=== PATIENT | male | born 1940 | race Caucasian/White ===

== ENCOUNTER 2016-06-29 11:31 | Emergency (ER) | payer MEDICARE ==
[2016-06-29] MEDS ORDERED: ADENOSINE 3 MG/ML 2 ML VIAL IVP STA (11:45)
[2016-06-29 11:51] VITALS: RESP 18
--- NOTE | 2016-06-29 11:52 | ED ---
General Adult HPI - General Chief complaint: Chest Pain Stated complaint: chest pain Time Seen by Provider: 06/29/16 11:35 Source: patient, family, RN notes reviewed Mode of arrival: wheelchair Limitations: no limitations - History of Present Illness Initial comments: This is a 76-year-old male who presents emergency department with past medical history significant for hypertension. Patient states today approximately an hour prior to arrival he started feeling his heart racing and he started having some chest pressure. Patient states he also became lightheaded. Patient states he was chopping wood at the time. Patient denies any significant difficulty breathing. Patient denies any recent fever chills cough per patient denies any similar symptoms in the past. Patient denies any heart disease in the past. Patient denies any diabetes. Patient denies any abdominal pain. Patient denies nausea vomiting diarrhea. Patient states he was sweating but he was also working hard in the was with full clothing on. Patient denies headache patient denies numbness weakness. Patient states currently lying in bed he has no chest pain and he is no longer lightheaded. - Related Data Home Medications Medication Instructions Recorded Confirmed Aspirin EC [Ecotrin Low Dose] 81 mg PO DAILY PRN 06/29/16 06/29/16 Atorvastatin [Lipitor] 20 mg PO HS 06/29/16 06/29/16 Losartan Potassium [Cozaar] 50 mg PO HS 06/29/16 06/29/16 Allergies Allergy/AdvReac Type Severity Reaction Status Date / Time No Known Allergies Allergy Verified 06/29/16 12:32 Review of Systems ROS Statement: Those systems with pertinent positive or pertinent negative responses have been documented in the HPI. ROS Other: All systems not noted in ROS Statement are negative. Past Medical History Past Medical History: Hyperlipidemia, Hypertension History of Any Multi-Drug Resistant Organisms: None Reported Additional Past Surgical History / Comment(s): ANKLE SURGERY Past Psychological History: No Psychological Hx Reported Smoking Status: Former smoker Past Alcohol Use History: None Reported Past Drug Use History: None Reported General Exam - General Exam Comments Initial Comments: GENERAL: Patient is well-developed and well-nourished. Patient is nontoxic and well- hydrated and is in mild distress. ENT: Neck is soft and supple. No significant lymphadenopathy is noted. Oropharynx is clear. Moist mucous membranes. Neck has full range of motion without eliciting any pain. EYES: The sclera were anicteric and conjunctiva were pink and moist. Extraocular movements were intact and pupils were equal round and reactive to light. Eyelids were unremarkable. PULMONARY: Unlabored respirations. Good breath sounds bilaterally. No audible rales rhonchi or wheezing was noted. CARDIOVASCULAR: Patient has a heart rate that is tachycardic at about 200 beats a minute ABDOMEN: Soft and nontender with normal bowel sounds. No palpable organomegaly was noted. There is no palpable pulsatile mass. SKIN: Skin is clear with no lesions or rashes and otherwise unremarkable. NEUROLOGIC: Patient is alert and oriented x3. Cranial nerves II through XII are grossly intact. Motor and sensory are also intact. Normal speech, volume and content. Symmetrical smile. MUSCULOSKELETAL: Normal extremities with adequate strength and full range of motion. No lower extremity swelling or edema. No calf tenderness. LYMPHATICS: No significant lymphadenopathy is noted PSYCHIATRIC: Normal psychiatric evaluation. Normal interpersonal interactions appears functionally intact in deals appropriately with others. No signs of depression. No signs of anxiety. Limitations: no limitations Course Vital Signs 06/29/16 06/29/16 06/29/16 11:35 11:51 12:37 Temperature 97.3 F L Pulse Rate 201 H 97 95 Respiratory 20 18 18 Rate Blood Pressure 117/59 145/70 153/77 O2 Sat by Pulse 95 98 100 Oximetry Medical Decision Making - Medical Decision Making Initial EKG for the patient showed a supraventricular tachycardia at 199 bpm QRS is 84 Q-T intervals 224 QTC is 407. No ST segment elevation was noted. I gave the patient 6 mg of adenosine and converted to a sinus rhythm at a second EKG it showed a sinus tachycardia at 109 bpm MD interval 164 QRS is 88 QT interval 320 QTC is 4:30. Patient's EKG shows no ST segment elevation or depression or T-wave abdomen is noted. Patient's chest x-ray showed no acute abnormality I went back into the room to reevaluate the patient he was having no symptoms since we converted him. - Lab Data Result diagrams: 06/29/16 11:44 06/29/16 11:44 Lab Results 06/29/16 06/29/16 06/29/16 Range/Units 11:44 11:44 11:44 WBC 9.5 (3.8-10.6) k/uL RBC 5.25 (4.30-5.90) m/uL Hgb 16.7 (13.0-17.5) gm/dL Hct 49.9 (39.0-53.0) % MCV 95.1 (80.0-100.0) fL MCH 31.8 (25.0-35.0) pg MCHC 33.5 (31.0-37.0) g/dL RDW 12.6 (11.5-15.5) % Plt Count 334 (150-450) k/uL Neutrophils % 67 % Lymphocytes % 21 % Monocytes % 6 % Eosinophils % 3 % Basophils % 1 % Neutrophils # 6.3 (1.3-7.7) k/uL Lymphocytes # 2.0 (1.0-4.8) k/uL Monocytes # 0.5 (0-1.0) k/uL Eosinophils # 0.3 (0-0.7) k/uL Basophils # 0.1 (0-0.2) k/uL PT (9.0-12.0) sec INR (<1.1) APTT (22.0-30.0) sec Sodium 141 (137-145) mmol/L Potassium 4.7 (3.5-5.1) mmol/L Chloride 106 (98-107) mmol/L Carbon Dioxide 20 L (22-30) mmol/L Anion Gap 15 mmol/L BUN 16 (9-20) mg/dL Creatinine 1.10 (0.66-1.25) mg/dL Est GFR (MDRD) Af Amer >60 (>60 ml/min/1.73 sqM) Est GFR (MDRD) Non-Af >60 (>60 ml/min/1.73 sqM) Glucose 173 H (74-99) mg/dL Calcium 9.7 (8.4-10.2) mg/dL Magnesium 2.1 (1.6-2.3) mg/dL Total Bilirubin 1.0 (0.2-1.3) mg/dL AST 23 (17-59) U/L ALT 33 (21-72) U/L Alkaline Phosphatase 77 (38-126) U/L Total Creatine Kinase 112 (55-170) U/L CK-MB (CK-2) 1.4 (0.0-2.4) ng/mL CK-MB (CK-2) Rel Index 1.3 Troponin I <0.012 (0.000-0.034) ng/mL Total Protein 8.0 (6.3-8.2) g/dL Albumin 4.6 (3.5-5.0) g/dL TSH 2.130 (0.465-4.680) mIU/L Free T4 1.10 (0.78-2.19) ng/dL 06/29/16 Range/Units 12:06 WBC (3.8-10.6) k/uL RBC (4.30-5.90) m/uL Hgb (13.0-17.5) gm/dL Hct (39.0-53.0) % MCV (80.0-100.0) fL MCH (25.0-35.0) pg MCHC (31.0-37.0) g/dL RDW (11.5-15.5) % Plt Count (150-450) k/uL Neutrophils % % Lymphocytes % % Monocytes % % Eosinophils % % Basophils % % Neutrophils # (1.3-7.7) k/uL Lymphocytes # (1.0-4.8) k/uL Monocytes # (0-1.0) k/uL Eosinophils # (0-0.7) k/uL Basophils # (0-0.2) k/uL PT 10.4 (9.0-12.0) sec INR 1.0 (<1.1) APTT 22.4 (22.0-30.0) sec Sodium (137-145) mmol/L Potassium (3.5-5.1) mmol/L Chloride (98-107) mmol/L Carbon Dioxide (22-30) mmol/L Anion Gap mmol/L BUN (9-20) mg/dL Creatinine (0.66-1.25) mg/dL Est GFR (MDRD) Af Amer (>60 ml/min/1.73 sqM) Est GFR (MDRD) Non-Af (>60 ml/min/1.73 sqM) Glucose (74-99) mg/dL Calcium (8.4-10.2) mg/dL Magnesium (1.6-2.3) mg/dL Total Bilirubin (0.2-1.3) mg/dL AST (17-59) U/L ALT (21-72) U/L Alkaline Phosphatase (38-126) U/L Total Creatine Kinase (55-170) U/L CK-MB (CK-2) (0.0-2.4) ng/mL CK-MB (CK-2) Rel Index Troponin I (0.000-0.034) ng/mL Total Protein (6.3-8.2) g/dL Albumin (3.5-5.0) g/dL TSH (0.465-4.680) mIU/L Free T4 (0.78-2.19) ng/dL Critical Care Time Critical Care Time: Yes Total Critical Care Time: 35 Disposition Clinical Impression: SVT (supraventricular tachycardia) Disposition: HOME SELF-CARE Condition: Good Instructions: Supraventricular Tachycardia (ED) Referrals: Masood Noel MD [Primary Care Provider] - 1-2 days Time of Disposition: 13:03
[2016-06-29 12:01] LABS: Basophils # (A) 0.1 k/uL (0-0.2); Basophils % (A) 1 %; CH 32.9; CHCM 34.8; Eosinophils # (A) 0.3 k/uL (0-0.7); Eosinophils % (A) 3 %; HCT 49.9 % (39.0-53.0); HDW 2.74; HGB 16.7 gm/dL (13.0-17.5); Luc # (Auto) 0.26; Luc % (Auto) 3; Lymphocytes % (A) 21 %; MCH 31.8 pg (25.0-35.0); MCHC 33.5 g/dL (31.0-37.0); MCV 95.1 fL (80.0-100.0); Mean Platelet Volume 6.8; Monocytes # (A) 0.5 k/uL (0-1.0); Monocytes % (A) 6 %; Neutrophils # (A) 6.3 k/uL (1.3-7.7); Neutrophils % (A) 67 %; RBC 5.25 m/uL (4.30-5.90); RDW 12.6 % (11.5-15.5); WBC 9.5 k/uL (3.8-10.6); WBC (Perox) 9.52
[2016-06-29 12:14] LABS: ALT 33 U/L (21-72); AST 23 U/L (17-59); Alkaline Phosphatase 77 U/L (38-126); Anion Gap 15 mmol/L; Blood Urea Nitrogen 16 mg/dL (9-20); Calcium 9.7 mg/dL (8.4-10.2); Carbon Dioxide 20 mmol/L (22-30); Chloride 106 mmol/L (98-107); Glucose 173 mg/dL (74-99); Magnesium 2.1 mg/dL (1.6-2.3); Non-African American GFR(MDRD) >60 (>60 ml/min/1.73 sqM); Potassium 4.7 mmol/L (3.5-5.1); Sodium 141 mmol/L (137-145)
[2016-06-29 12:20] LABS: Creatine Kinase 112 U/L (55-170)
[2016-06-29 12:21] LABS: Partial Thromboplastin Time 22.4 sec (22.0-30.0); Prothrombin Time 10.4 sec (9.0-12.0)
[2016-06-29 12:33] LABS: Creatine Kinase MB 1.4 ng/mL (0.0-2.4); Troponin I <0.012 ng/mL (0.000-0.034)
--- NOTE | 2016-06-29 12:45 | XR ---
EXAMINATION TYPE: XR chest 2V DATE OF EXAM: 06/29/2016 12:01 PM COMPARISON: NONE INDICATION: Dysrhythmia short of breath chest pain TECHNIQUE: Frontal and lateral views of the chest are obtained. FINDINGS: The heart size is normal. The pulmonary vasculature is normal. The lungs are clear. IMPRESSION: 1. No acute pulmonary process.
[2016-06-29 12:57] VITALS: BP 153/77; PULSE 95
[2016-06-29 13:14] VITALS: TEMP 97.1
== END 2016-06-29 13:14 | disposition home or self-care (01) ==
LOC: EC 11:31
DX: I47.1 Supraventricular tachycardia (principal); E78.5 Hyperlipidemia, unspecified; I10 Essential (primary) hypertension; Z87.891 Personal history of nicotine dependence; Z79.899 Other long term (current) drug therapy
CPT/HCPCS: 99285; 96374; 36415; 93005; 84439; 80053; 82550; 82553; 83735; 84443; 84484; 85025; 85610; 85730; 71020; J0153

== ENCOUNTER 2021-04-03 01:33 | Observation (INO) | payer MEDICARE ==
[2021-04-03] MEDS ORDERED: MORPHINE SULFATE 4 MG/ML SYRINGE IV STA (01:43)
[2021-04-03] MEDS ORDERED: SODIUM CHLORIDE 0.9% 1,000 ML IV STA (01:43)
[2021-04-03] MEDS ORDERED: ONDANSETRON 4 MG/2 ML VIAL IVP STA (01:43)
--- NOTE | 2021-04-03 01:44 | ED ---
Abdominal Pain HPI - General Chief Complaint: Abdominal Pain Stated Complaint: Abdominal pain Time Seen by Provider: 04/03/21 01:43 Source: patient, EMS, RN notes reviewed, old records reviewed Mode of arrival: EMS Limitations: no limitations - History of Present Illness Initial Comments: This is an 80-year-old male to the ER today for evaluation of severe epigastric and right upper quadrant abdominal pain to his back. Positive nausea positive vomiting no fevers. No recent travel history or sick contacts. No prior significant surgical history. Doesn't feel more nauseous now symptoms began shortly after eating dinner Complaint: abdominal pain -: hour(s) Location: diffuse, RUQ Radiation: RUQ, epigastric Migration to: epigastric Severity: moderate Severity scale (1-10): 7 Quality: fullness, sharp Consistency: constant Improves With: nothing Worsens With: eating, vomiting, movement Associated Symptoms: nausea, vomiting Treatments Prior to Arrival: other (none) - Related Data Home Medications Medication Instructions Recorded Confirmed Atorvastatin [Lipitor] 20 mg PO HS 06/29/16 04/03/21 Losartan Potassium [Cozaar] 50 mg PO HS 06/29/16 04/03/21 Calcium Carbonate [Tums] 500 mg PO QID PRN 04/03/21 04/03/21 Decongestant (Unknown Otc) 1 tab PO HS 04/03/21 04/03/21 Metoprolol Succinate (ER) [Toprol 25 mg PO HS 04/03/21 04/03/21 XL] Previous Rx's Medication Instructions Recorded Docusate [Colace] 100 mg PO BID #30 capsule 04/05/21 HYDROcodone/APAP 5-325MG [[place] 1 tab PO Q6HR PRN 3 Days #12 tab 04/05/21 5-325] Levofloxacin [Levaquin] 500 mg PO DAILY 7 Days #7 tab 04/05/21 Simethicone 40 mg/0.6 ml Drops 40 mg PO QID ml 04/05/21 [Mylicon Drops] Allergies Allergy/AdvReac Type Severity Reaction Status Date / Time No Known Allergies Allergy Verified 04/03/21 09:42 Review of Systems ROS Statement: Those systems with pertinent positive or pertinent negative responses have been documented in the HPI. ROS Other: All systems not noted in ROS Statement are negative. Past Medical History Past Medical History: Hyperlipidemia, Hypertension History of Any Multi-Drug Resistant Organisms: None Reported Additional Past Surgical History / Comment(s): ANKLE SURGERY Past Psychological History: No Psychological Hx Reported Smoking Status: Never smoker Past Alcohol Use History: Rare Past Drug Use History: None Reported General Exam Limitations: no limitations General appearance: alert, in no apparent distress, anxious Head exam: Present: atraumatic, normocephalic, normal inspection Eye exam: Present: normal appearance, PERRL, EOMI. Absent: scleral icterus, conjunctival injection, periorbital swelling ENT exam: Present: normal exam, mucous membranes moist Neck exam: Present: normal inspection. Absent: tenderness, meningismus, lymphadenopathy Respiratory exam: Present: normal lung sounds bilaterally. Absent: respiratory distress, wheezes, rales, rhonchi, stridor Cardiovascular Exam: Present: regular rate, normal rhythm, normal heart sounds. Absent: systolic murmur, diastolic murmur, rubs, gallop, clicks GI/Abdominal exam: Present: soft, distended, tenderness, guarding, normal bowel sounds. Absent: rebound, rigid Extremities exam: Present: normal inspection, full ROM, normal capillary refill. Absent: tenderness, pedal edema, joint swelling, calf tenderness Back exam: Present: normal inspection Neurological exam: Present: alert, oriented X3, CN II-XII intact Psychiatric exam: Present: normal affect, normal mood Skin exam: Present: warm, dry, intact, normal color. Absent: rash Course Vital Signs 04/03/21 04/03/21 04/03/21 01:40 05:42 06:55 Temperature 98.2 F 98.4 F Pulse Rate 69 72 98 Respiratory 17 18 18 Rate Blood Pressure 168/88 149/74 158/87 O2 Sat by Pulse 98 97 95 Oximetry - Reevaluation(s) Reevaluation #1: Medical record is reviewed Patient symptoms are significantly improved here in the ER Patient informed results and questions answered Medical Decision Making - Medical Decision Making 80 male to the emergency department today. Patient has positive acute cholecystitis with significant abdominal pain. Patient be admitted for surgical evaluation and treatment - Lab Data Result diagrams: 04/05/21 09:20 04/04/21 07:13 Lab Results 04/03/21 04/03/21 04/03/21 Range/Units 01:54 01:54 01:54 WBC 11.1 H (3.8-10.6) k/uL RBC 4.76 (4.30-5.90) m/uL Hgb 15.0 (13.0-17.5) gm/dL Hct 42.6 (39.0-53.0) % MCV 89.5 (80.0-100.0) fL MCH 31.4 (25.0-35.0) pg MCHC 35.1 (31.0-37.0) g/dL RDW 12.3 (11.5-15.5) % Plt Count 244 (150-450) k/uL MPV 7.1 Neutrophils % 81 % Lymphocytes % 11 % Monocytes % 5 % Eosinophils % 1 % Basophils % 1 % Neutrophils # 9.0 H (1.3-7.7) k/uL Lymphocytes # 1.3 (1.0-4.8) k/uL Monocytes # 0.5 (0-1.0) k/uL Eosinophils # 0.1 (0-0.7) k/uL Basophils # 0.1 (0-0.2) k/uL Sodium 137 (137-145) mmol/L Potassium 3.9 (3.5-5.1) mmol/L Chloride 104 (98-107) mmol/L Carbon Dioxide 22 (22-30) mmol/L Anion Gap 11 mmol/L BUN 14 (9-20) mg/dL Creatinine 0.79 (0.66-1.25) mg/dL Est GFR (CKD-EPI)AfAm >90 (>60 ml/min/1.73 sqM) Est GFR (CKD-EPI)NonAf 85 (>60 ml/min/1.73 sqM) Glucose 181 H (74-99) mg/dL Plasma Lactic Acid Julián 1.8 (0.7-2.0) mmol/L Calcium 9.8 (8.4-10.2) mg/dL Total Bilirubin 0.5 (0.2-1.3) mg/dL AST 21 (17-59) U/L ALT 21 (4-49) U/L Alkaline Phosphatase 81 (38-126) U/L Total Protein 7.3 (6.3-8.2) g/dL Albumin 4.3 (3.5-5.0) g/dL Amylase 33 (30-110) U/L Lipase 64 (23-300) U/L Disposition Clinical Impression: Acute cholecystitis Disposition: ADMITTED IP TO THIS HOSP Condition: Good Is patient prescribed a controlled substance at d/c from ED?: No
[2021-04-03 02:12] LABS: Basophils # (A) 0.1 k/uL (0-0.2); Basophils % (A) 1 %; Eosinophils # (A) 0.1 k/uL (0-0.7); Eosinophils % (A) 1 %; HCT 42.6 % (39.0-53.0); Lymphocytes # (A) 1.3 k/uL (1.0-4.8); Lymphocytes % (A) 11 %; MCH 31.4 pg (25.0-35.0); MCHC 35.1 g/dL (31.0-37.0); MCV 89.5 fL (80.0-100.0); Mean Platelet Volume 7.1; Monocytes # (A) 0.5 k/uL (0-1.0); Monocytes % (A) 5 %; Neutrophils % (A) 81 %; Platelet Count 244 k/uL (150-450); RBC 4.76 m/uL (4.30-5.90); RDW 12.3 % (11.5-15.5); WBC 11.1 k/uL (3.8-10.6)
[2021-04-03 02:24] LABS: ALT 21 U/L (4-49); AST 21 U/L (17-59); African American GFR (CKD) >90 (>60 ml/min/1.73 sqM); Albumin 4.3 g/dL (3.5-5.0); Alkaline Phosphatase 81 U/L (38-126); Amylase 33 U/L (30-110); Anion Gap 11 mmol/L; Blood Urea Nitrogen 14 mg/dL (9-20); Calcium 9.8 mg/dL (8.4-10.2); Carbon Dioxide 22 mmol/L (22-30); Chloride 104 mmol/L (98-107); Lipase 64 U/L (23-300); Non-African American GFR(CKD) 85 (>60 ml/min/1.73 sqM); Potassium 3.9 mmol/L (3.5-5.1); Sodium 137 mmol/L (137-145); Total Bilirubin 0.5 mg/dL (0.2-1.3); Total Protein 7.3 g/dL (6.3-8.2)
[2021-04-03 02:25] LABS: Glucose 181 mg/dL (74-99)
[2021-04-03] MEDS ORDERED: HYDROmorphone 1 MG/ML 1 ML SYRINGE IVP STA (02:27)
--- NOTE | 2021-04-03 03:10 | CT ---
EXAMINATION TYPE: CT abdomen pelvis w con DATE OF EXAM: 04/03/2021 COMPARISON: None HISTORY: pain and nausea CT DLP: 1659.5 mGycm Automated exposure control for dose reduction was used. CONTRAST: Performed with IV Contrast, patient injected with 100ml mL of Isovue 300. Images obtained from the diaphragm to the floor the pelvis with IV contrast. There is some mild atelectasis at the lung bases. Heart size is normal. There is no pericardial effus ion. Liver spleen stomach appear intact. The bile ducts are not dilated. Gallbladder is large with la rge gallstone at the gallbladder neck. Gallbladder dilated up to 5.5 cm in diameter. There is no adrenal mass. Kidneys show satisfactory contrast opacification. There is no hydronephrosi s. Ureters are not dilated. There is no retroperitoneal adenopathy. Bladder distends smoothly. There is some mild prostate calcification. There is no free fluid in the pelvis. There are a few sigmoid di verticula. There is no diverticulitis. Appendix appears normal. There is no mesenteric edema. There is no ascites or free air. There is no bowel obstruction. The lumbar vertebra have normal alignment. There is no compression fracture. Bony pelvis is intact. T he hip joints are intact. IMPRESSION: Dilated gallbladder with gallstone impacted at the gallbladder neck and suggestive of cholecystitis. No dilated ducts. Mild subsegmental atelectasis at the lung bases.
[2021-04-03] MEDS ORDERED: NALOXONE 0.4 MG/ML 1 ML VIAL IV PRN (03:49)
[2021-04-03] MEDS ORDERED: ONDANSETRON 4 MG/2 ML VIAL IVP PRN (03:49)
[2021-04-03] MEDS: HYDROmorphone 1 MG/ML 1 ML SYRINGE IVP PRN ×4 (05:42→22:09)
[2021-04-03] MEDS: SODIUM CHLORIDE 0.9% 1,000 ML IV SCH ×2 (07:03→22:10)
[2021-04-03] MEDS: PIPERACILLIN-TAZOBACTAM 3.375 GM in SODIUM CHLORIDE 0.9% 100 ML IVPB SCH ×2 (08:59→16:42)
--- NOTE | 2021-04-03 09:58 | P.GSHP ---
History of Present Illness H&P Date: 04/03/21 CHIEF COMPLAINT: Right upper quadrant abdominal pain HISTORY OF PRESENT ILLNESS: This is a 80-year-old male who presents to the hospital with complaints of abdominal pain. He reports that his pain started around 6 PM yesterday after he ate pizza for dinner. He reports his pain is mostly right upper quadrant epigastric area just below the rib cage. He was having dry heaves at home and nausea. Denies any fever, chills or sweats. Denies any previous abdominal surgery. He did have elevated white count and computed tomography scan had showed evidence of a dilated gallbladder and stone impacting the gallbladder and neck suggestive of cholecystitis. Patient has been admitted hospital for an acute cholecystitis and is scheduled for surgery today. PAST MEDICAL HISTORY: Hypertension, hyperlipidemia, arrhythmia PAST SURGICAL HISTORY: Ankle surgery MEDICATIONS: See list. ALLERGIES: See list. SOCIAL HISTORY: No illicit drug use. REVIEW OF SYSTEMS: CONSTITUTIONAL: Denies fever or chills. HEENT: Denies blurred vision, vision changes, or eye pain. Denies hemoptysis CARDIOVASCULAR: Denies chest pain or pressure. RESPIRATORY: No shortness of breath. GASTROINTESTINAL: See HPI for pertinent findings HEMATOLOGIC: Denies bleeding disorders. GENITOURINARY: Denies any blood in urine or increased urinary frequency. SKIN: Denies pruitis. Denies rash. PHYSICAL EXAM: VITAL SIGNS: Reviewed GENERAL: Well-developed in no acute distress. HEENT: No sclera icterus. Extraocular movements grossly intact. Moist buccal mucosa. Head is atraumatic, normocephalic. No nasal drainage. ABDOMEN: Soft. Nondistended. Tenderness with palpation of the right upper quadrant and epigastric area NEUROLOGIC: Alert and oriented. Cranial nerves II through XII grossly intact. LABORATORY DATA: WBC is 11.1 Hgb 15 platelets 244 Sodium 137 potassium 3.9 BUN 14 creatinine 0.79 Total bilirubin and LFTs normal Lipase 64 COVID-19 not detected IMAGING: Computed tomography scan abdomen and pelvis shows dilated gallbladder with gallstone impacted at the gallbladder neck and suggestive of cholecystitis. No dilated ducts. Mild sub-subsegmental atelectasis at the lung bases. ASSESSMENT: 1. Acute cholecystitis PLAN: -Patient scheduled for laparoscopic cholecystectomy today with Dr. Madden -Keep patient nothing by mouth -Continue IV fluids -Start IV antibiotics -Continue pain medication as needed Physician Survey Researcher note has been reviewed by physician. Signing provider agrees with the documented findings, assessment, and plan of care. Past Medical History Past Medical History: Hyperlipidemia, Hypertension History of Any Multi-Drug Resistant Organisms: None Reported Additional Past Surgical History / Comment(s): ANKLE SURGERY Past Anesthesia/Blood Transfusion Reactions: No Reported Reaction Past Psychological History: No Psychological Hx Reported Smoking Status: Former smoker Past Alcohol Use History: Rare Past Drug Use History: None Reported Medications and Allergies Home Medications Medication Instructions Recorded Confirmed Type Atorvastatin [Lipitor] 20 mg PO HS 06/29/16 04/03/21 History Losartan Potassium [Cozaar] 50 mg PO HS 06/29/16 04/03/21 History Calcium Carbonate [Tums] 500 mg PO QID PRN 04/03/21 04/03/21 History Decongestant (Unknown Otc) 1 tab PO HS 04/03/21 04/03/21 History Metoprolol Succinate (ER) [Toprol 25 mg PO HS 04/03/21 04/03/21 History Xl] Allergies Allergy/AdvReac Type Severity Reaction Status Date / Time No Known Allergies Allergy Verified 04/03/21 09:42 Surgical - Exam Vital Signs Temp Pulse Resp BP Pulse Ox 98.2 F 69 17 168/88 98 04/03/21 01:40 04/03/21 01:40 04/03/21 01:40 04/03/21 01:40 04/03/21 01:40 Results - Labs 04/03/21 01:54 04/03/21 01:54 Abnormal Lab Results - Last 24 Hours (Table) 04/03/21 04/03/21 Range/Units 01:54 01:54 WBC 11.1 H (3.8-10.6) k/uL Neutrophils # 9.0 H (1.3-7.7) k/uL Glucose 181 H (74-99) mg/dL Diabetes panel 04/03/21 Range/Units 01:54 Sodium 137 (137-145) mmol/L Potassium 3.9 (3.5-5.1) mmol/L Chloride 104 (98-107) mmol/L Carbon Dioxide 22 (22-30) mmol/L BUN 14 (9-20) mg/dL Creatinine 0.79 (0.66-1.25) mg/dL Glucose 181 H (74-99) mg/dL Calcium 9.8 (8.4-10.2) mg/dL AST 21 (17-59) U/L ALT 21 (4-49) U/L Alkaline Phosphatase 81 (38-126) U/L Total Protein 7.3 (6.3-8.2) g/dL Albumin 4.3 (3.5-5.0) g/dL Calcium panel 04/03/21 Range/Units 01:54 Calcium 9.8 (8.4-10.2) mg/dL Albumin 4.3 (3.5-5.0) g/dL Pituitary panel 04/03/21 Range/Units 01:54 Sodium 137 (137-145) mmol/L Potassium 3.9 (3.5-5.1) mmol/L Chloride 104 (98-107) mmol/L Carbon Dioxide 22 (22-30) mmol/L BUN 14 (9-20) mg/dL Creatinine 0.79 (0.66-1.25) mg/dL Glucose 181 H (74-99) mg/dL Calcium 9.8 (8.4-10.2) mg/dL Adrenal panel 04/03/21 Range/Units 01:54 Sodium 137 (137-145) mmol/L Potassium 3.9 (3.5-5.1) mmol/L Chloride 104 (98-107) mmol/L Carbon Dioxide 22 (22-30) mmol/L BUN 14 (9-20) mg/dL Creatinine 0.79 (0.66-1.25) mg/dL Glucose 181 H (74-99) mg/dL Calcium 9.8 (8.4-10.2) mg/dL Total Bilirubin 0.5 (0.2-1.3) mg/dL AST 21 (17-59) U/L ALT 21 (4-49) U/L Alkaline Phosphatase 81 (38-126) U/L Total Protein 7.3 (6.3-8.2) g/dL Albumin 4.3 (3.5-5.0) g/dL
[2021-04-03] MEDS ORDERED: IV FLUID CONTINUATION 1,000 ML IV ONE (11:10)
[2021-04-03] MEDS ORDERED: HEPARIN SODIUM,PORCINE/PF 5,000 UNIT/0.5 ML SYRINGE SQ ONE (11:21)
[2021-04-03] MEDS ORDERED: BUPIVACAIN-EPI 0.25%-1:200,000 30 ML VIAL SQ ONE (11:54)
[2021-04-03] MEDS ORDERED: NEOSTIGMINE 1 MG/ML 10 ML VIAL ONE (11:56)
[2021-04-03] MEDS ORDERED: .fentaNYL (PF) 50 MCG/ML 2 ML AMP ONE (11:56)
[2021-04-03] MEDS ORDERED: METOPROLOL TARTRATE 5 MG/5 ML VIAL IVP ONE (11:56)
[2021-04-03] MEDS ORDERED: ROCURONIUM 10 MG/ML (5 ML VIAL) IV ONE (11:56)
[2021-04-03] MEDS ORDERED: LIDOCAINE 1% INJ 10MG/ML (20 ML MDV) ONE (11:56)
[2021-04-03] MEDS ORDERED: PROPOFOL 10 MG/ML 20 ML VIAL IV ONE (11:56)
[2021-04-03] MEDS ORDERED: KETAMINE 10 MG/ML 20 ML VIAL ONE (11:56)
[2021-04-03] MEDS ORDERED: GLYCOPYRROLATE 0.2 MG/ML 2 ML VIAL ONE (11:56)
[2021-04-03] MEDS ORDERED: SUCCINYLCHOLINE CHLORIDE VIAL 200 MG/10 ML VIAL IV ONE (11:56)
[2021-04-03] MEDS ORDERED: LACTATED RINGERS 1,000 ML IV ONE (11:59)
--- NOTE | 2021-04-03 12:43 | P.OP ---
Date of Procedure: 04/03/21 Preoperative Diagnosis: Acute cholecystitis Postoperative Diagnosis: Acute cholecystitis Procedure(s) Performed: Laparoscopic cholecystectomy Anesthesia: JACIEL Surgeon: Reza Madden Estimated Blood Loss (ml): 25 Pathology: other (Gallbladder) Condition: stable Disposition: PACU Description of Procedure: The patient was placed on the operating table. The patient received a general endotracheal tube anesthesia. The patients abdomen was prepped and draped in the usual sterile fashion. Through an infraumbilical stab incision, the fascia of the anterior abdominal wall was grasped with a pair of Kochers and then the Veress needle was placed in the peritoneal cavity. Position of the Veress needle was confirmed with positive drop test. The abdomen was then insufflated. After adequate insufflation, the 10 mm trocar was placed in the peritoneal cavity. Following this the laparoscope was placed in the peritoneal cavity. The patient was placed in the head-up, right side up position and then a 5 mm trocar was placed in the right lateral and right subcostal position under direct visualization. A 8 mm trocar was placed in the epigastric position. The gallbladder was grossly inflamed and hydropic. The gallbladder was aspirated before it could be grasped. The gallbladder was grasped in the fundus and infundibulum. Traction on the gallbladder was placed in the lateral and the cephalad positions. The triangle of Calot was visualized.. The cystic duct was bluntly dissected until the union of the cystic duct and common bile duct was seen. A critical view of safety was achieved. The cystic duct was then divided and sealed with the Harmonic scissors. A PDS Endoloop was then placed throughout the cystic duct stump. The cystic artery divided and sealed with the Harmonic scissors. The gallbladder was then removed from the liver bed using Harmonic scissors. The gallbladder was then extracted through the epigastric port site. Operative field was checked for any bleeding spots and Harmonic scissors was used to coagulate the liver bed. The abdomen was irrigated. The trocars were removed. The skin was closed using interrupted 3-0 Vicryl suture. Dermabond dressing were applied. The patient tolerated the procedure well.
[2021-04-04] MEDS ORDERED: SODIUM CHLORIDE 0.9% 1,000 ML BAG ONE
[2021-04-04] MEDS: PIPERACILLIN-TAZOBACTAM 3.375 GM in SODIUM CHLORIDE 0.9% 100 ML IVPB SCH ×3 (03:37→16:37)
[2021-04-04] MEDS: SODIUM CHLORIDE 0.9% 1,000 ML IV SCH ×3 (03:37→19:39)
[2021-04-04 04:25] LABS: Amorphous Sediment,Urine Rare /hpf; Appearance,Urine Turbid (Clear); Bilirubin,Urine Negative (Negative); Blood,Urine Negative (Negative); Budding Yeast,Urine Many /hpf; Color,Urine Yellow; Glucose,Urine (UA) 3+ (Negative); Hyaline Casts,Urine 8 /lpf (0-2); Ketones,Urine 1+ (Negative); Leukocyte Esterase,Urine Negative (Negative); Nitrite,Urine Negative (Negative); Protein,Urine 1+ (Negative); RBC,Urine 3 /hpf (0-5); Specific Gravity,Urine 1.037 (1.001-1.035); Squamous Epithelial Cell,Urine 1 /hpf (0-4); Urobilinogen,Urine <2.0 mg/dL (<2.0); WBC,Urine 5 /hpf (0-5)
[2021-04-04] MEDS: HYDROmorphone 1 MG/ML 1 ML SYRINGE IVP PRN ×2 (04:35→09:12)
[2021-04-04 07:55] LABS: Albumin 3.3 g/dL (3.5-5.0); Calcium 8.7 mg/dL (8.4-10.2); Potassium 4.4 mmol/L (3.5-5.1); Total Bilirubin 1.2 mg/dL (0.2-1.3); Total Protein 6.1 g/dL (6.3-8.2)
[2021-04-04 08:37] LABS: Basophils # (A) 0.1 k/uL (0-0.2); Basophils % (A) 1 %; Eosinophils % (A) 0 %; HCT 41.7 % (39.0-53.0); HGB 13.8 gm/dL (13.0-17.5); Lymphocytes # (A) 1.6 k/uL (1.0-4.8); Lymphocytes % (A) 10 %; MCH 32.4 pg (25.0-35.0); Mean Platelet Volume 7.3; Monocytes # (A) 0.9 k/uL (0-1.0); Monocytes % (A) 6 %; Neutrophils # (A) 12.6 k/uL (1.3-7.7); Neutrophils % (A) 81 %; Platelet Count 251 k/uL (150-450); RBC 4.25 m/uL (4.30-5.90); RDW 13.3 % (11.5-15.5); WBC 15.6 k/uL (3.8-10.6)
[2021-04-04 08:43] LABS: MCV 98.1 fL (80.0-100.0)
[2021-04-04] MEDS ORDERED: ENOXAPARIN 40 MG/0.4 ML SYRINGE SQ SCH (09:00)
[2021-04-04] MEDS: HYDROcodone/APAP 5-325MG 1 EACH TAB PO PRN ×2 (12:15→16:33)
--- NOTE | 2021-04-04 14:48 | P.PN ---
Subjective Progress Note Date: 04/04/21 CHIEF COMPLAINT: Acute cholecystitis HISTORY OF PRESENT ILLNESS: Patient is postop day #1 status post laparoscopic cholecystectomy. Patient complaining of abdominal pain. No flatus. Denies any nausea or vomiting. He is tolerating diet. Afebrile. WBC is up from 11-15.6. PHYSICAL EXAM: VITAL SIGNS: Reviewed. GENERAL: Well-developed in no acute distress. HEENT: No sclera icterus. Extraocular movements grossly intact. Moist buccal mucosa. Head is atraumatic, normocephalic. ABDOMEN: Soft. Nondistended. Incision sites clean dry and intact NEUROLOGIC: Alert and oriented. Cranial nerves II through XII grossly intact. ASSESSMENT: 1. Acute cholecystitis status post laparoscopic cholecystectomy PLAN: -Add Webb to help with pain control -Add Mylicon drops for gas pain -Continue regular diet -Continue antibiotics -Encouraged patient to ambulate -Encouraged patient to use incentive inspirometer -GI prophylaxis Protonix and DVT prophylaxis Lovenox Physician Stain Applicator note has been reviewed by physician. Signing provider agrees with the documented findings, assessment, and plan of care. Objective - Vital Signs Vital signs: Vital Signs Temp 98.6 F 04/04/21 14:15 Pulse 103 H 04/04/21 14:15 Resp 18 04/04/21 14:15 BP 118/71 04/04/21 14:15 Pulse Ox 92 L 04/04/21 14:15 Intake & Output 04/03/21 04/04/21 04/04/21 18:59 06:59 18:59 Intake Total 700 Output Total 330 200 Balance 370 -200 Weight 108.862 kg Intake: IV 700 Output: Urine 300 200 Estimated Blood Loss 30 Other: Voiding Method Toilet Toilet # Voids 1 150 - Labs CBC & Chem 7: 04/04/21 07:13 04/04/21 07:13 Labs: Abnormal Lab Results - Last 24 Hours (Table) 04/04/21 04/04/21 04/04/21 Range/Units 02:00 07:13 07:13 WBC 15.6 H (3.8-10.6) k/uL RBC 4.25 L (4.30-5.90) m/uL Neutrophils # 12.6 H (1.3-7.7) k/uL Sodium 135 L (137-145) mmol/L Glucose 159 H (74-99) mg/dL Total Protein 6.1 L (6.3-8.2) g/dL Albumin 3.3 L (3.5-5.0) g/dL Ur Specific [place] 1.037 H (1.001-1.035) Urine Protein 1+ H (Negative) Urine Glucose (UA) 3+ H (Negative) Urine Ketones 1+ H (Negative) Amorphous Sediment Rare H (None) /hpf Hyaline Casts 8 H (0-2) /lpf Urine Yeast (Budding) Many H (None) /hpf
[2021-04-04] MEDS: PANTOPRAZOLE 40 MG TABLET PO SCH (15:12)
[2021-04-04] MEDS: SIMETHICONE 40 MG/0.6 ML DROPS 2,000 MG/30 ML BOTTLE PO SCH ×3 (15:15→22:08)
[2021-04-04] MEDS ORDERED: CALCIUM CARBONATE 500 MG CHEWABLE PO PRN (19:38)
[2021-04-04] MEDS ORDERED: METOPROLOL SUCCINATE (ER) 25 MG TAB.ER.24H PO SCH (21:00)
[2021-04-05] MEDS: PIPERACILLIN-TAZOBACTAM 3.375 GM in SODIUM CHLORIDE 0.9% 100 ML IVPB SCH ×3 (00:50→15:14)
[2021-04-05] MEDS: HYDROcodone/APAP 5-325MG 1 EACH TAB PO PRN ×2 (02:50→15:31)
[2021-04-05] MEDS: PANTOPRAZOLE 40 MG TABLET PO SCH (06:32)
[2021-04-05] MEDS: SIMETHICONE 40 MG/0.6 ML DROPS 2,000 MG/30 ML BOTTLE PO SCH ×2 (08:39→13:57)
[2021-04-05] MEDS: SODIUM CHLORIDE 0.9% 1,000 ML IV SCH (08:41)
[2021-04-05 09:49] LABS: Basophils # (A) 0.1 k/uL (0-0.2); Basophils % (A) 0 %; Eosinophils # (A) 0.1 k/uL (0-0.7); Eosinophils % (A) 1 %; HCT 42.3 % (39.0-53.0); HGB 13.6 gm/dL (13.0-17.5); Lymphocytes # (A) 1.4 k/uL (1.0-4.8); Lymphocytes % (A) 11 %; MCH 31.5 pg (25.0-35.0); MCHC 32.2 g/dL (31.0-37.0); MCV 97.9 fL (80.0-100.0); Mean Platelet Volume 6.9; Monocytes # (A) 0.6 k/uL (0-1.0); Monocytes % (A) 5 %; Neutrophils # (A) 10.9 k/uL (1.3-7.7); Neutrophils % (A) 81 %; Platelet Count 240 k/uL (150-450); RBC 4.32 m/uL (4.30-5.90); RDW 13.2 % (11.5-15.5); WBC 13.4 k/uL (3.8-10.6)
[2021-04-05] MEDS ORDERED: DOCUSATE 100 MG CAP PO SCH (11:30)
[2021-04-05] MEDS ORDERED: NA PHOS,M-B/NA PHOS,DI-BA 133 ML ENEMA RECTAL ONE (13:30)
[2021-04-05 14:11] VITALS: BP 172/82; PULSE 97; RESP 20; TEMP 98.2
--- NOTE | 2021-04-05 14:47 | P.CONS ---
History of Present Illness - Reason for Consult Consult date: 04/05/21 - History of Present Illness HISTORY OF PRESENT ILLNESS Is an 80-year-old male patient of Dr. Masood Noel with past medical history of hypertension, hyperlipidemia, hypothyroidism. Patient presented to the hospital on 04/03 complaining of abdominal pain. CAT scan of the abdomen and pelvis with contrast revealed dilated gallbladder impacted at the gallbladder neck and suggestive of cholecystitis. No dilated ducts. Mild subsegmental atelectasis at the lung bases. Patient underwent laparoscopic cholecystectomy on 04/03. Patient states that he does have abdominal bloating and not passing gas. He has been urinating okay. He denies having any chest pain, shortness of breath, no nausea or vomiting. He has been ambulating in the hallway without difficulty. He has no abdominal tenderness. He does have hot packs to help with abdominal bloating. Blood pressure is 136/78. In general, patient states he does not have any appetite. He is hoping to pass gas of that he go home today. REVIEW OF SYSTEMS Constitutional: No fever, no chills, no night sweats. No weight change. No weakness, fatigue or lethargy. No daytime sleepiness. EENT: No headache. No blurred vision or double vision, no loss of vision. No loss of Hearing, no ringing in the ears, no dizziness. No nasal drainage or congestion. No epistaxis. No sore throat. Lungs: No shortness of breath, cough, no sputum production. No wheezing. Cardiovascular: No chest pain, no lower extremity edema. No palpitations. No paroxysmal nocturnal dyspnea. No orthopnea. No lightheadedness or dizziness. No syncopal episodes. Abdominal: No abdominal pain. No nausea, vomiting. No diarrhea. No constipation. No bloody or tarry stools. No loss of appetite. Genitourinary: No dysuria, increased frequency, urgency. No urinary retention. Musculoskeletal: No myalgias. No muscle weakness, no gait dysfunction, no frequent falls. No back pain. No neck pain. Integumentary: No wounds, no lesions. No rash or pruritus. No unusual bruising. No change in hair or nails. Neurologic: No aphasia. No facial droop. No change in mentation. No head injury. No headache. No paralysis. No paresthesia. Psychiatric: No depression. No anxiety. No mood swings. Endocrine: No abnormal blood sugars. No weight change. No excessive sweating or thirst. No cold intolerance. SOCIAL HISTORY Patient denies any history of smoking. He drinks alcohol rarely less than 1 time per week. He is and lives at home with his . FAMILY HISTORY Mother at age 50 in an accident. Father at age 80 from stroke. Patient has 2 brothers one 90-year-old and one 75-year-old living with no major medical problems. He does not have any sisters. He has 1 daughter and 2 sons with no major medical problems. PHYSICAL EXAMINATION Gen: This is an 80-year-old male. Patient is seen walking the hallway and appears to be in no acute distress. Gait is steady. HEENT: Head is atraumatic, normocephalic. Pupils equal, round. Sclerae is anicteric. NECK: Supple. No JVD. No lymphadenopathy. No thyromegaly. LUNGS: Clear to auscultation. No wheezes or rhonchi. No intercostal retractions. HEART: Regular rate and rhythm. No murmur. ABDOMEN: Soft. Bowel sounds are present. No masses. No tenderness. Puncture sites showed no sign of infection. EXTREMITIES: No pedal edema. No calf tenderness. Dorsalis pedis +2 b ilaterally. NEUROLOGICAL: Patient is awake, alert and oriented x3. Cranial nerves 2 through 12 are grossly intact. ASSESSMENT AND PLAN Acute cholecystitis status post laparoscopic cholecystectomy 04/03. Continue pain management, increase activity, incentive spirometry to reduce incidence of atelectasis and hospital-acquired pneumonia, patient is in low fat diet. Hypertension. Patient will be resumed on losartan 50 mg at a time and continue metoprolol succinate 25 mg at bedtime. COVID-19 testing negative. Patient has been hospitalized during a pandemic. Patient will be admitted to the hospital for a minimum of 2 night stay. DISCHARGE PLAN Home. Impression and plan of care have been directed as dictated by the signing physician. Chica Green nurse practitioner acting as scribe for signing physician. Past Medical History Past Medical History: Hyperlipidemia, Hypertension History of Any Multi-Drug Resistant Organisms: None Reported Additional Past Surgical History / Comment(s): ANKLE SURGERY Past Anesthesia/Blood Transfusion Reactions: No Reported Reaction Past Psychological History: No Psychological Hx Reported Smoking Status: Former smoker Past Alcohol Use History: Rare Past Drug Use History: None Reported Medications and Allergies Home Medications Medication Instructions Recorded Confirmed Type Atorvastatin [Lipitor] 20 mg PO HS 06/29/16 04/03/21 History Losartan Potassium [Cozaar] 50 mg PO HS 06/29/16 04/03/21 History Calcium Carbonate [Tums] 500 mg PO QID PRN 04/03/21 04/03/21 History Decongestant (Unknown Otc) 1 tab PO HS 04/03/21 04/03/21 History Metoprolol Succinate (ER) [Toprol 25 mg PO HS 04/03/21 04/03/21 History XL] Docusate [Colace] 100 mg PO BID #30 capsule 04/05/21 Rx HYDROcodone/APAP 5-325MG [[place] 1 tab PO Q6HR PRN 3 Days #12 tab 04/05/21 Rx 5-325] Levofloxacin [Levaquin] 500 mg PO DAILY 7 Days #7 tab 04/05/21 Rx Simethicone 40 mg/0.6 ml Drops 40 mg PO QID ml 04/05/21 Rx [Mylicon Drops] Allergies Allergy/AdvReac Type Severity Reaction Status Date / Time No Known Allergies Allergy Verified 04/03/21 09:42 Physical Exam Vitals: Vital Signs Temp Pulse Resp BP Pulse Ox 04/05/21 08:05 98.9 F 91 14 136/78 95 04/05/21 07:10 98.9 F 04/05/21 01:46 99.7 F H 93 16 133/77 93 L 04/04/21 22:09 99.2 F 04/04/21 19:30 99.8 F H 92 18 147/72 94 L 04/04/21 14:15 98.6 F 103 H 18 118/71 92 L 04/04/21 14:07 93 L Intake and Output 04/04/21 04/05/21 04/05/21 22:59 06:59 14:59 Intake Total 340 340 Balance 340 340 Intake: Intake, IV Titration 100 100 Amount Piperacillin-Tazobactam 3 100 100 .375 gm In Sodium Chloride 0.9% 100 ml @ 25 mls/hr IVPB Q8HR [facility] Rx# :[id number] Oral 240 240 Other: # Voids 1 2 Results CBC & Chem 7: 04/05/21 09:20 04/04/21 07:13 Labs: Abnormal Lab Results - Last 24 Hours (Table) 04/05/21 Range/Units 09:20 WBC 13.4 H (3.8-10.6) k/uL Neutrophils # 10.9 H (1.3-7.7) k/uL
--- NOTE | 2021-04-05 15:10 | P.DS ---
Providers Date of admission: 04/03/21 03:49 Expected date of discharge: 04/05/21 Attending physician: Reza Madden Consults: 04/04/21 15:09 Consult Physician Routine Consulting Provider: Carolina Perez Consult Reason/Comments: medical management Do you want consulting provider notified?: Yes Primary care physician: Masood [facility] Course: Discharge diagnoses 1. Acute cholecystitis status post laparoscopic cholecystectomy Hospital course This is a 80-year-old male who presents to the hospital with complaints of abdominal pain. He reports that his pain started around 6 PM yesterday after he ate pizza for dinner. He reports his pain is mostly right upper quadrant epigastric area just below the rib cage. He was having dry heaves at home and nausea. Denies any fever, chills or sweats. Denies any previous abdominal surgery. He did have elevated white count and computed tomography scan had showed evidence of a dilated gallbladder and stone impacting the gallbladder and neck suggestive of cholecystitis. Patient is status post laparoscopic cholecystectomy. He tolerated surgery well. His pain is controlled. Afebrile. He has had flatus and bowel movement. He is up and ambulating. He is stable for discharge. Physician Skein Tier note has been reviewed by physician. Signing provider agrees with the documented findings, assessment, and plan of care. Patient Condition at Discharge: Stable Plan - Discharge Summary New Discharge Prescriptions: New Simethicone 40 mg/0.6 ml Drops [Mylicon Drops] 40 mg PO QID ml HYDROcodone/APAP 5-325MG [[place] 5-325] 1 tab PO Q6HR PRN 3 Days #12 tab PRN Reason: Pain Docusate [Colace] 100 mg PO BID #30 capsule Levofloxacin [Levaquin] 500 mg PO DAILY 7 Days #7 tab Continue Losartan Potassium [Cozaar] 50 mg PO HS Atorvastatin [Lipitor] 20 mg PO HS Metoprolol Succinate (ER) [Toprol XL] 25 mg PO HS Decongestant (Unknown Otc) 1 tab PO HS Calcium Carbonate [Tums] 500 mg PO QID PRN PRN Reason: upset stomach Discharge Medication List Atorvastatin [Lipitor] 20 mg PO HS 06/29/16 [History] Losartan Potassium [Cozaar] 50 mg PO HS 06/29/16 [History] Calcium Carbonate [Tums] 500 mg PO QID PRN 12/07/21 [History] Decongestant (Unknown Otc) 1 tab PO HS 04/03/21 [History] Metoprolol Succinate (ER) [Toprol XL] 25 mg PO HS 04/03/21 [History] Docusate [Colace] 100 mg PO BID #30 capsule 04/05/21 [Rx] HYDROcodone/APAP 5-325MG [[place] 5-325] 1 tab PO Q6HR PRN 3 Days #12 tab 04/05/21 [Rx] Levofloxacin [Levaquin] 500 mg PO DAILY 7 Days #7 tab 04/05/21 [Rx] Simethicone 40 mg/0.6 ml Drops [Mylicon Drops] 40 mg PO QID ml 04/05/21 [Rx] Follow up Appointment(s)/Referral(s): Masood Noel MD [Primary Care Provider] - 04/09/21 1:30 pm Reza Madden MD [STAFF PHYSICIAN] - 04/12/21 3:00 pm Activity/Diet/Wound Care/Special Instructions: No driving while taking [place] No lifting over 10 pounds You may shower. No soaking or tub baths for 2 weeks Very light activity until you are reevaluated at your follow up appointment with your surgeon Discharge Disposition: HOME SELF-CARE
[2021-04-05] MEDS ORDERED: LOSARTAN 50 MG TAB PO SCH (21:00)
[2021-04-05] MEDS ORDERED: ENOXAPARIN 40 MG/0.4 ML SYRINGE SQ SCH (21:00)
== END 2021-04-05 16:28 | disposition home or self-care (01) ==
LOC: EC 01:33 → 6PED 03:49
PROVIDERS: ADMIT Surgery; ATTEND Surgery
DX: K80.00 Calculus of gallbladder with acute cholecystitis without obstruction (principal); J98.11 Atelectasis; I10 Essential (primary) hypertension; E78.5 Hyperlipidemia, unspecified; R14.0 Abdominal distension (gaseous); E03.9 Hypothyroidism, unspecified; I49.9 Cardiac arrhythmia, unspecified; Z20.822 Contact with and (suspected) exposure to COVID-19; Z79.899 Other long term (current) drug therapy; Z98.890 Other specified postprocedural states; Z87.891 Personal history of nicotine dependence; Z82.3 Family history of stroke
CPT/HCPCS: 96376; 96361; 96374; 96375; 99285; 36415; 88304; 80053 ×2; 82150; 83605; 83690; 85025 ×3; 81001; 87635; 74177; 47562; G0378 ×3; J2543 ×3; J0330; J2270; J2710; J0690; J2405; J2001; J1650; J3010; J1170 ×2; J2704; Q9967; J1644

== ENCOUNTER → 2024-01-09 | Outpatient (CLI) | payer MEDICARE ==
--- NOTE | 2024-01-09 13:35 | MR ---
EXAMINATION TYPE: MR brain wo/w con DATE OF EXAM: 01/09/2024 COMPARISON: NONE HISTORY: 83-year-old male R41.0 Confusion; R41.3 memory impairment TECHNIQUE: Multiplanar, multisequence images of the brain and brainstem were acquired before and aft er administration of 10 mL IV Gadavist. Diffusion weighted imaging is performed. FINDINGS: No evidence for acute infarction, hemorrhage, mass, mass effect, midline shift, herniation, effacemen t of basal cisterns, or extra-axial fluid collection. There is mild to moderate generalized supratentorial volume loss. Secondary mild prominence to the ve ntricular system. Major intracranial flow voids are intact. Anatomic variation with a persistent origin right pos terior cerebral artery. T2/FLAIR weighted sequences show severe confluent periventricular and deep white matter bright signal change in both cerebral hemispheres. 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 Incidental 9 mm choroid plexus cyst atrium of the left lateral ventricle. Midline structures demonstrate normal morphology. The craniocervical junction is normal. Post contrast images demonstrate no evidence of pathologic enhancement. Dural venous sinuses are pat ent. Scattered mild to moderate mucosal thickening ethmoid air cells and trace within the frontal sinuses. Partially visualized moderate mucosal thickening floor of the left maxillary sinus. Globes appear intact, slightly myopic. Fluid within the left mastoid air cells. Prominent bilateral parotid space lymph nodes measuring up t o 6 mm, nonspecific. IMPRESSION: 1. No acute intracranial abnormality seen. Mild to moderate generalized cerebral atrophy. 2. Moderate to severe burden of chronic small vessel ischemic disease. No enhancing intracranial lesi ons. 3. Scattered mild to moderate chronic paranasal sinus disease. 4. Fluid within the left mastoid air cells. Correlate for any mastoid and to exclude mastoiditis. [facility] 01/09/2024 1:27 PM
== END | disposition home or self-care (01) ==
LOC: RADMRIMAIN 09:45
PROVIDERS: ATTEND Family Medicine
DX: I67.82 Cerebral ischemia (principal); R41.0 Disorientation, unspecified; R41.3 Other amnesia
CPT/HCPCS: 70553